=== PATIENT | male | born 1985 ===

== ENCOUNTER 2021-01-13 18:00 | Emergency (ER) | payer SELFPAY ==
[~2021-01-13] VITALS: Ht 165.1 cm; Wt 102.1 kg
[2021-01-13 20:25] VITALS: BP 139/95
[2021-01-13 21:19] LABS: Basophils # (auto) 0 10 ^3/uL (0-0.2); Basophils % (auto) 0.5 % (0.0-2.0); Eosinophils # (auto) 0.1 10 ^3/uL (0-0.8); Eosinophils % (auto) 0.6 % (0.0-7.0); Hemoglobin 14.6 g/dL (13.5-17.5); Lymphocytes # (auto) 2.1 10 ^3/uL (0.4-5.4); Lymphocytes % (auto) 20.7 % (10.0-50.0); Mean Corpuscular Hemoglobin 30.4 pg (28.0-32.0); Mean Corpuscular Hgb Conc. 34.7 g/dL (32.0-36.0); Mean Corpuscular Volume 87.4 fL (80.0-100.0); Monocytes # (auto) 0.9 10 ^3/uL (0-1.3); Monocytes % (auto) 9.1 % (0.0-12.0); Neutrophils % (auto) 69.1 % (37.0-80.0); Nucleated Red Blood Cells % 0.1 %; Red Cell Distribution Width 12.5 % (11.8-14.3); White Blood Cell 10.2 10^3/uL (4.4-10.8)
[2021-01-13 21:39] LABS: Albumin 3.4 g/dL (3.4-5.0); Anion Gap 12 (5-15); Blood Urea Nitrogen 9 mg/dL (7-18); Calcium 9.4 mg/dL (8.5-10.1); Carbon Dioxide 21 mmol/L (21-32); Chloride 102 mmol/L (98-107); Glucose 329 mg/dL (74-106); Potassium 4.2 mmol/L (3.5-5.1); Sodium 135 mmol/L (136-145)
[2021-01-13 21:48] LABS: Alanine Aminotransferase 27 U/L (16-61); Alkaline Phosphatase 117 U/L (45-117); Aspartate Aminotransferase 11 U/L (15-37); GFR African American 152 mL/min; GFR Non-African American 125 mL/min; Total Protein 8.6 g/dL (6.4-8.2)
== END 2021-01-13 23:18 | disposition home or self-care (01) ==
LOC: ER 18:00
DX: J06.9 Acute upper respiratory infection, unspecified (principal); H10.89 Other conjunctivitis
CPT/HCPCS: 36415; 71045; 80053; 84484; 85025; 93005